=== PATIENT | female | born 1985 | race Caucasian/White ===

== ENCOUNTER 2016-11-03 19:57 | Emergency (ER) | payer MEDICAID ==
[2016-11-03 19:45] LABS: INFLUENZA A NEG (NEG); INFLUENZA B NEG (NEG)
[~2016-11-03 19:57] MED LIST: AMOXICILLIN PO; ANTI-INFLAMATORY PO; AUGMENTIN1 TAB.SR1 PO; BENADRYL PO; DICLOFENAC; HUMIRA40 MG/0.1 SQ; IBUPROFEN800 MG PO; MAGNESIUM400 MG PO; MEDROL PO; NO MEDICATIONS; PEN-VEE K PO; PRILOSEC20 MG PO; REMICADE; SYNTHROID PO; TYLENOL #3 PO; VICODIN 5/500 T1 TAB PO; VITAMIN D1000 UNI2 PO; VOLTAREN75 MG PO; ZOLOFT PO
== END 2016-11-03 20:19 | disposition home or self-care (01) ==
LOC: SED 19:57
PROVIDERS: Nurse Practitioner
DX: J02.0 Streptococcal pharyngitis (principal); F17.200 Nicotine dependence, unspecified, uncomplicated
CPT/HCPCS: 87804; 87880; 96372; 99283; J0561